=== PATIENT | male | born 1980 | race Caucasian/White ===

== ENCOUNTER 2017-10-14 09:38 | Emergency (ER) | payer SELFPAY ==
[~2017-10-14] VITALS: Ht 160 cm; Wt 86.2 kg
[~2017-10-14 09:38] MED LIST: IBP800T PO
--- OUTSIDE RECORDS SUMMARY | 2017-10-14 09:44 | XMS REPORT | Continuity of Care Document ---
Author Author [facility] [place] Address Unknown Phone Unavailable Allergies There is no data. Medications There is no data. Problems Date Dx Coded Attending Type Code Diagnosis Diagnosed By 04/17/2010 JOSE ENRIQUE GAXIOLA APRN R 465.9 ACUTE UPPER RESPIRATORY INFECTIONS OF UNSPECIFIED SITE 04/24/2010 JOSE ENRIQUE GAXIOLA APRN R 461.9 SINUSITIS ACUTE 07/31/2010 JOSE ENRIQUE GAXIOLA APRN R 462 ACUTE PHARYNGITIS 08/22/2010 JOSE ENRIQUE GAXIOLA APRN R 008.8 INTESTINAL INFECTION DUE TO OTHER ORGANISM NOT ELSEWHERE CLASSIFIED 11/30/2010 JOSE ENRIQUE GAXIOLA APRN R 786.2 COUGH 12/11/2010 JOSE ENRQIUE GAXIOLA APRN R 296.32 MO DEPRESSIVE RECURRENT MODERATE 12/11/2010 JOSE ENRIQUE GAXIOLA APRN R 300.00 AN ANXIETY UNSPEC 01/04/2011 JOSE ENRIQUE GAXIOLA APRN R 296.90 MO MOOD DIS NOS 01/04/2011 JOSE ENRIQUE GAXIOLA APRN R 300.02 AN GEN ANXIETY 01/04/2011 JOSE ENRIQUE GAXIOLA APRN R 301.9 PD PERS DIS NOS 06/10/2011 JOSE ENRIQUE GAXIOLA APRN R V06.1 TDAP DX 08/13/2013 JOSE ENRIQUE GAXIOLA APRN R 558.9 GASTROENTERITIS NONINFECTIOUS Procedures There is no data. Results There is no data. Encounters ACCT No. Visit Date/Time Discharge Status Pt. Type Provider Facility Loc./Unit Complaint [id number] 08/13/2013 15:18:00 08/13/2013 23:59:59 CLS Outpatient JOSE ENRIQUE GAXIOLA APRN [id number] 06/07/2014 14:04:00 06/07/2014 23:59:59 CLS Outpatient
[2017-10-14 11:10] LABS: BASOPHILS % (AUTO) 0 % (0-10); EOSINOPHILS # (AUTO) 0.2 10^3/uL (0.0-0.3); EOSINOPHILS % (AUTO) 3 % (0-10); HEMATOCRIT 43 % (40-54); HEMOGLOBIN 14.8 G/DL (13.3-17.7); LYMPHOCYTES % (AUTO) 24 % (12-44); MEAN CORPUSCULAR HEMOGLOBIN 30 PG (25-34); MEAN CORPUSCULAR HGB CONC 34 G/DL (32-36); MEAN CORPUSCULAR VOLUME 87 FL (80-99); MEAN PLATELET VOLUME 8.9 FL (7.4-10.4); MONOCYTES # (AUTO) 0.7 X 10^3 (0.0-1.0); MONOCYTES % (AUTO) 9 % (0-12); NEUTROPHILS # (AUTO) 5.5 X 10^3 (1.8-7.8); NEUTROPHILS % (AUTO) 65 % (42-75); PLATELET COUNT 257 10^3/uL (130-400); RED BLOOD COUNT 5.01 10^6/uL (4.35-5.85); RED CELL DISTRIBUTION WIDTH 14.5 % (10.0-14.5); WHITE BLOOD COUNT 8.5 10^3/uL (4.3-11.0)
[2017-10-14 11:18] LABS: BILIRUBIN,URINE NEGATIVE (NEGATIVE); CLARITY,URINE CLEAR; COLOR,URINE YELLOW; GLUCOSE, URINE (UA) NEGATIVE (NEGATIVE); KETONES,URINE NEGATIVE (NEGATIVE); LEUKOCYTE ESTERASE ,URINE NEGATIVE (NEGATIVE); NITRITE,URINE NEGATIVE (NEGATIVE); PH,URINE 7 (5-9); PROTEIN,URINE NEGATIVE (NEGATIVE); UROBILINOGEN,URINE NORMAL (NORMAL)
[2017-10-14 11:21] LABS: ALANINE AMINOTRANSFERASE 33 U/L (0-55); ALBUMIN 4.4 GM/DL (3.2-4.5); ALKALINE PHOSPHATASE 75 U/L (40-136); BILIRUBIN,TOTAL 0.3 MG/DL (0.1-1.0); BUN/CREATININE RATIO 14; CALCIUM 9.2 MG/DL (8.5-10.1); CARBON DIOXIDE 23 MMOL/L (21-32); CHLORIDE 101 MMOL/L (98-107); CREATININE SERUM 0.93 MG/DL (0.60-1.30); GFR ESTIMATED > 60; GLUCOSE 109 MG/DL (70-105); POTASSIUM 3.9 MMOL/L (3.6-5.0); SODIUM 134 MMOL/L (135-145); TOTAL PROTEIN 7.9 GM/DL (6.4-8.2)
[2017-10-14 11:29] LABS: BACTERIA,URINE NEGATIVE /HPF; RBC,URINE RARE /HPF
[2017-10-14] MEDS ORDERED: CIPR-225 PO (12:40)
--- NOTE | 2017-10-14 12:40 | ED Abdominal Pain ---
General Chief Complaint: Abdominal/GI Problems Stated Complaint: GASTRO ISSUES Nursing Triage Note: ARRIVED VIA AMB TO ROOM 08. COMPLAINS OF ACID REFULX ISSIUES X2 WEEKS. ALSO STATES HE HAD HAD SOME LEFT LOWER ABD PAIN THAT RADIATES INTO HIS BACK THAT HE THINKS IS A KIDNEY ISSUE. Sepsis Screen: No Definite Risk Source of Information: Patient Exam Limitations: No Limitations History of Present Illness Date Seen by Provider: Oct 14, 2017 Time Seen by Provider: 11:03 Initial Comments This 37-year-old gentleman presents to the emergency room with complains of acid reflux and also lower abdominal pain. His reflux has been ongoing for at least 2 weeks and disrupts his sleeping. He refluxes up to his throat and has a burning sensation that it varies in location from the epigastrium to the throat. He is not presently taking any antacid medication. He also reports lower abdominal discomfort intermittently along with some loose stools. He denies any vomiting. He has had no hematochezia or melena. He reports having urgency to defecate after eating frequently. The abdominal pain is mostly in the left lower quadrant. Patient rarely drinks alcohol. Allergies and Home Medications Allergies Coded Allergies: No Known Allergies (Unverified Allergy, Mild, 11/30/09) Home Medications Ciprofloxacin HCl 500 Mg Tablet, 500 MG PO BID Prescribed by: WINSOME BURKETT on 10/14/17 1240 Metronidazole 500 Mg Tablet, 500 MG PO BID Prescribed by: WINSOME BURKETT on 10/14/17 1244 Omeprazole 20 Mg Capsule.dr, 20 MG PO BID Prescribed by: WINSOME BURKETT on 10/14/17 1244 Review of Systems Constitutional: no symptoms reported EENTM: No Symptoms Reported Respiratory: No Symptoms Reported Cardiovascular: No Symptoms Reported Gastrointestinal: See HPI Genitourinary: No Symptoms Reported Musculoskeletal: no symptoms reported Skin: no symptoms reported Psychiatric/Neurological: No Symptoms Reported Endocrine: No Symptoms Reported Past Ybifnbl-Wmzawd-Fslmpk Hx Patient Social History Alcohol Use: Occasionally Uses Recreational Drug Use: Yes (POT) Smoking Status: Current Everyday Smoker Recent Foreign Travel: No Contact w/Someone Who Travel: No Recent Infectious Disease Expo: No Recent Hopitalizations: No Surgeries History of Surgeries: Yes Surgeries: Orthopedic Respiratory History of Respiratory Disorde: Yes (CHILDHOOD ASTHMA.) Respiratory Disorders: Asthma, Pneumonia Cardiovascular History of Cardiac Disorders: No Neurological History of Neurological Disord: No Genitourinary History of Genitourinary Disor: No Gastrointestinal History of Gastrointestinal Di: Yes Gastrointestinal Disorders: Gastroesophageal Reflux Musculoskeletal History of Musculoskeletal Dis: No Endocrine History of Endocrine Disorders: No HEENT History of HEENT Disorders: No Cancer History of Cancer: No Psychosocial History of Psychiatric Problem: No Integumentary History of Skin or Integumenta: No Physical Exam Vital Signs VS - Last 72 Hours, by Label 10/14/17 10/14/17 09:55 12:52 Temp 98.0 Pulse 89 75 Resp 18 18 B/P (MAP) 123/72 (89) 124/87 Pulse Ox 98 98 Capillary Refill : Less Than 3 Seconds General Appearance: WD/WN, no apparent distress HEENT: normal ENT inspection, pharynx normal Neck: normal inspection Respiratory: lungs clear, normal breath sounds, no respiratory distress, no accessory muscle use Cardiovascular: regular rate, rhythm, no edema, no murmur Gastrointestinal: normal bowel sounds, soft, No distended, No guarding, tenderness (Mild in the epigastrium and moderate in the left lower quadrant) Extremities: normal inspection, no pedal edema Neurologic/Psychiatric: slot manager II-XII nml as tested, no motor/sensory deficits, alert, normal mood/affect, oriented x 3 Skin: normal color, warm/dry Progress/Results/Core Measures Results/Orders Lab Results Laboratory Tests Test 10/14/17 10:30 10/14/17 11:11 Range/Units White Blood Count 8.5 4.3-11.0 10^3/uL Red Blood Count 5.01 4.35-5.85 10^6/uL Hemoglobin 14.8 13.3-17.7 G/DL Hematocrit 43 40-54 % Mean Corpuscular Volume 87 80-99 FL Mean Corpuscular Hemoglobin 30 25-34 PG Mean Corpuscular Hemoglobin Concent 34 32-36 G/DL Red Cell Distribution Width 14.5 10.0-14.5 % Platelet Count 257 130-400 10^3/uL Mean Platelet Volume 8.9 7.4-10.4 FL Neutrophils (%) (Auto) 65 42-75 % Lymphocytes (%) (Auto) 24 12-44 % Monocytes (%) (Auto) 9 0-12 % Eosinophils (%) (Auto) 3 0-10 % Basophils (%) (Auto) 0 0-10 % Neutrophils # (Auto) 5.5 1.8-7.8 X 10^3 Lymphocytes # (Auto) 2.0 1.0-4.0 X 10^3 Monocytes # (Auto) 0.7 0.0-1.0 X 10^3 Eosinophils # (Auto) 0.2 0.0-0.3 10^3/uL Basophils # (Auto) 0.0 0.0-0.1 10^3/uL Sodium Level 134 L 135-145 MMOL/L Potassium Level 3.9 3.6-5.0 MMOL/L Chloride Level 101 98-107 MMOL/L Carbon Dioxide Level 23 21-32 MMOL/L Anion Gap 10 5-14 MMOL/L Blood Urea Nitrogen 13 7-18 MG/DL Creatinine 0.93 0.60-1.30 MG/DL Estimat Glomerular Filtration Rate > 60 BUN/Creatinine Ratio 14 Glucose Level 109 H 70-105 MG/DL Calcium Level 9.2 8.5-10.1 MG/DL Total Bilirubin 0.3 0.1-1.0 MG/DL Aspartate Amino Transf (AST/SGOT) 22 5-34 U/L Alanine Aminotransferase (ALT/SGPT) 33 0-55 U/L Alkaline Phosphatase 75 40-136 U/L C-Reactive Protein High Sensitivity 0.12 0.00-0.50 MG/DL Total Protein 7.9 6.4-8.2 GM/DL Albumin 4.4 3.2-4.5 GM/DL Lipase 37 8-78 U/L Urine Color YELLOW Urine Clarity CLEAR Urine pH 7 5-9 Urine Specific [place] 1.010 L 1.016-1.022 Urine Protein NEGATIVE NEGATIVE Urine Glucose (UA) NEGATIVE NEGATIVE Urine Ketones NEGATIVE NEGATIVE Urine Nitrite NEGATIVE NEGATIVE Urine Bilirubin NEGATIVE NEGATIVE Urine Urobilinogen NORMAL NORMAL MG/DL Urine Leukocyte Esterase NEGATIVE NEGATIVE Urine RBC (Auto) NEGATIVE NEGATIVE Urine RBC RARE /HPF Urine WBC NONE /HPF Urine Squamous Epithelial Cells NONE /HPF Urine Crystals NONE /LPF Urine Bacteria NEGATIVE /HPF Urine Casts NONE /LPF Urine Mucus NEGATIVE /LPF Urine Culture Indicated NO My Orders Orders - WINSOME DUPREE MD Cbc With Automated Diff (10/14/17 11:03) Comprehensive Metabolic Panel (10/14/17 11:03) Ua Culture If Indicated (10/14/17 11:03) Hs C Reactive Protein (10/14/17 11:43) Lipase (10/14/17 11:43) Vital Signs/I&O Vital Sign - Last 12Hours 10/14/17 10/14/17 09:55 12:52 Temp 98.0 Pulse 89 75 Resp 18 18 B/P (MAP) 123/72 (89) 124/87 Pulse Ox 98 98 Blood Pressure Mean: 89 Progress Note : Progress Note Vital signs and workup were unremarkable. Patient was advised to take a conservative approach altering diet and starting an antacid therapy for a couple of weeks. He is to follow-up with his primary care provider for further evaluation and treatment. Should symptoms worsen or he not improve, endoscopy and imaging may then be appropriate. Because of pain specifically in the left lower quadrant associated with stool urgency and loose stools, a trial of Flagyl and Cipro was also prescribed. Departure Impression Impression: Primary Impression: Gastroesophageal reflux Qualified Codes: K21.9 - Gastro-esophageal reflux disease without esophagitis Additional Impression: Left lower quadrant pain Disposition: 01 HOME, SELF-CARE Condition: Stable Departure-Patient Inst. Decision time for Depature: 12:30 Referrals: NO,LOCAL PHYSICIAN (PCP/Family) Primary Care Physician Patient Instructions: Acid Reflux (Gastroesophageal Reflux Disease) in Adults, Acute Abdomen (Belly Pain), Adult (DC) Add. Discharge Instructions: Take omeprazole 20 mg (purchased [id number]) twice daily for one month. Complete your antibiotics as prescribed. Avoid the following: Alcohol, tobacco, spicy foods, caffeine, carbonation, citrus fruits and juices, chocolate, tomato products, NSAID medications such as naproxen and ibuprofen, eating close to bedtime, eating large meals, fatty or greasy foods, or anything else you know irritates your stomach. Work toward weight loss to reduce pressure on your abdomen. You may elevate your head when you sleep at night to prevent acid reflux. Follow-up with a primary care provider soon as possible. Return to the emergency room if symptoms worsen. If you wish to follow-up at the [facility], please call [phone] to make an appointment. All discharge instructions reviewed with patient and/or family. Voiced understanding. Scripts Omeprazole (Omeprazole) 20 Mg Capsule. 20 MG PO BID, #60 CAP Prov: WINSOME DUPREE MD 10/14/17 Metronidazole (Flagyl) 500 Mg Tablet 500 MG PO BID, #14 TAB Prov: WINSOME DUPREE MD 10/14/17 Ciprofloxacin HCl (Cipro) 500 Mg Tablet 500 MG PO BID, #14 TAB Prov: WINSOME DUPREE MD 10/14/17 WINSOME DUPREE MD Oct 14, 2017 12:40
[2017-10-14] MEDS ORDERED: METR500T PO (12:44)
[2017-10-14] MEDS ORDERED: OMEP20CA12 PO (12:44)
[2017-10-14 12:52] VITALS: BP 124/87
== END 2017-10-14 12:52 | disposition home or self-care (01) ==
LOC: EDUNIT# 09:38 → ER 09:41
DX: K21.9 Gastro-esophageal reflux disease without esophagitis (principal); R10.32 Left lower quadrant pain; F12.90 Cannabis use, unspecified, uncomplicated; F17.200 Nicotine dependence, unspecified, uncomplicated; J45.909 Unspecified asthma, uncomplicated; Z87.01 Personal history of pneumonia (recurrent)
CPT/HCPCS: 36415; 80053; 81000; 83690; 85025; 86141